=== PATIENT | male | born 1985 | race Caucasian/White ===

== ENCOUNTER 2019-05-03 10:56 | Emergency (ER) | payer SELFPAY ==
[2019-05-03] MEDS ORDERED: DIPH,PERTUSS(ACELL),TET VAC/PF 0.5 ML DISP.SYRIN IM ONE (11:08)
[2019-05-03] MEDS: DIPH,PERTUSS(ACELL),TET VAC/PF 0.5 ML DISP.SYRIN IM ONE (11:12)
--- NOTE | 2019-05-03 11:17 | ED Physician Documentation ---
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 Onset: minutes Timing: still present Modifying Factors: scissors - ROS CONST: no problems EYES/ENT: none CVS/RESP: none GI/: none MS/SKIN/LYMPH: none NEURO/PSYCH: denies: headache - PAST HX Past History: hypertension, other (depression) Other History: none Surgeries/Procedures: none Immunizations: tetanus (unknown), UTD Allergies/Adverse Reactions: Allergies Allergy/AdvReac Type Severity Reaction Status Date / Time amoxicillin trihydrate Allergy Intermediate Rash Verified 07/26/13 17:12 [From Amoxil] Penicillins Allergy Intermediate Rash Verified 07/26/13 17:12 Home Medications: Ambulatory Orders Medication Instructions Recorded Lisinopril 07/26/13 - SOCIAL HX Smoking History: non-smoker Alcohol Use: none Drug Use: none - FAMILY HX Family History: No - VITAL SIGNS Vital Signs: Vital Signs Temp Pulse Resp BP Pulse Ox 188/78 07/26/13 17:30 - REVIEWED ASSESSMENTS Nursing Assessment Reviewed: Yes Vitals Reviewed: Yes Procedures Wound Location: upper extremity (left index finger) Wound's Depth, Shape: superficial Wound Explored: clean Irrigated w/ Saline (ccs): 50 Betadine Prep?: No Wound Repaired With: Dermabond Splint Applied?: Yes (finger splint) ED Results Lab/Radiology - Orders Orders: ED Orders Category Date Time Status Cleanse with NS and Chlorhexid 1T Care 05/03/19 11:04 Ordered Finger Splint 1T Care 05/03/19 11:04 Ordered Skin Adhesive NOW Care 05/03/19 11:15 Ordered Diph,Pertuss(Acell),Tet Vac/Pf [Adacel] Med 05/03/19 11:04 Once 0.5 ml IM .ONCE ONE Diph,Pertuss(Acell),Tet Vac/Pf [Adacel] Med 05/03/19 11:08 Discontinued 0.5 ml IM .STK-MED ONE General Adult Physical Exam - PHYSICAL EXAM GENERAL APPEARANCE: no distress EENT: eye inspection normal, ENT inspection normal, IRAM NECK: normal inspection RESPIRATORY: breath sounds normal CVS: heart sounds normal SKIN: warm/dry, other (superficial lac to the left index finger) EXTREMITIES: normal range of motion NEURO: oriented X3, motor nml, sensation nml, mood/affect nml, cognition normal Discharge Clincal Impression: Finger laceration Referrals: Primary Doctor,No [Primary Care Provider] - 2 Days Additional Instructions: Skin adhesive will start to slough off as laceration heals; try not to pick Wear splint x 5 days to help from bumping and opening up laceration Keep finger elevated to prevent throbbing sensation Follow up with PCP as needed Condition: Good Disposition: 01 HOME, SELF-CARE Decision to Admit: NO Decision Time: 11:20
[2019-05-03 11:20] VITALS: BP 141/92
== END 2019-05-03 11:19 | disposition home or self-care (01) ==
LOC: ED 10:56
DX: S61.211A Laceration without foreign body of left index finger without damage to nail, initial encounter (principal); W27.2XXA Contact with scissors, initial encounter; Y93.89 Activity, other specified
CPT/HCPCS: 12001; 90471; 90472; 90715; 99282; 99284